=== PATIENT | female | born 1945 | race Caucasian/White ===

== ENCOUNTER 2020-11-19 18:47 | Inpatient (IN) | payer MEDICARE, OTHER ==
[~2020-11-19] VITALS: Ht 152.4 cm; Wt 112.6 kg
[~2020-11-19 18:47] MED LIST: ALPRAZOLAM 0.50.5 MG PO; ALTACE10 M1; ALTACE10 M1 PO; AMLODIPINE BESY10 MG PO; ASPIRIN325 PO; ASPIRIN81 M2 PO; BIOTIN1 MG PO; BIOTIN2500 MCG PO; BRILINTA90 MG PO; BUDEPRION XL300 MG; BUPROPION PO; BUPROPION XL300 MG PO; CENTRUM SILVER1 EAC3; COMPLETE SENIO1 EACH PO; COREG3.125 MG PO; CRESTOR10 MG PO; D3 DOTS2000 UNIT PO; ETODOLAC500 MG PO; FISH OIL 1,001000 MG PO; HYDROCHLOROTHIA50 MG PO; LEVOTHYROXIN0.125 M1 PO; LEVOTHYROXIN0.137 M1 PO; LISINOPRIL40 MG PO; LORTAB 5-500 T1 EAC1 PO; LORTAB 7.5/5001 TA3; NABUMETONE 500500 M1; NITROGLYCERIN0.4 MG SUBLING; NORCO5 PO; OMEGA-31000 MG PO; PEPCID40 MG PO; PLAVIX 75 MG TA75 MG PO; PREDNISONE 20 M20 M1 PO; PRINIVIL40 MG PO; PROTONIX40 M2 PO; SENIOR VITAMIN PO; SYNTHROID137 MC1 PO; TRAMADOL 50 MG50 MG PO; VICODIN; VITAMIN D35000 UNI1 PO
[2020-11-19 18:50] VITALS: BP 127/74
[2020-11-19 19:33] LABS: ABSOLUTE BASOPHILS 0.1 thou/uL (0.0-0.2); ABSOLUTE EOSINOPHILS 0.2 thou/uL (0.0-0.7); ABSOLUTE LYMPHOCYTES 0.8 thou/uL (0.8-5.3); ABSOLUTE MONOCYTES 0.4 thou/uL (0.0-1.2); ABSOLUTE NEUTROPHILS 4.3 thou/uL (1.6-8.1); BASOPHILS 1.2 %; EOSINOPHILS 3.4 %; HEMATOCRIT 29.3 % (37.0-47.0); LYMPHOCYTES 13.7 %; MCH 21.7 pg (26.0-34.0); MCHC 30.7 g/dL (28.0-37.0); MCV 70.6 fL (80.0-100.0); MONOCYTES 6.6 %; MPV 8.2 fl. (7.2-11.1); NUCLEATED RBCS 0 /100WBC; PLATELET COUNT* 229 thou/uL (150-400); POLYS 75.1 %; RBC 4.15 mil/uL (4.20-5.00); RDW-CV 18.3 % (10.5-14.5); WBC 5.7 thou/uL (4.0-11.0)
[2020-11-19 19:42] LABS: CALCIUM 8.6 mg/dL (8.5-10.1); CREATININE 0.8 mg/dL (0.6-1.3); POTASSIUM 3.8 mmol/L (3.5-5.1)
[2020-11-19 19:45] LABS: INR 1.6; PROTIME 16.4 Seconds (9.20-11.50)
[2020-11-19 19:57] LABS: ALBUMIN 3.6 g/dL (3.4-5.0); MAGNESIUM 1.7 mg/dL (1.8-2.4); TOTAL BILIRUBIN 0.8 mg/dL (<0.1-1.0); TOTAL PROTEIN 7.2 g/dL (6.4-8.2)
[2020-11-19 20:08] LABS: HYPOCHROMASIA 2+; MICROCYTES 1+; PLATELET ESTIMATE ADEQUATE
[2020-11-19 20:17] LABS: URINE BLOOD 1+ (Negative); URINE CLARITY CLEAR; URINE COLOR YELLOW; URINE GLUCOSE-RANDOM NEGATIVE (Negative); URINE KETONES NEGATIVE (Negative); URINE NITRITE-REFLEX NEGATIVE (Negative); URINE PROTEIN 2+ (Negative); URINE SPECIFIC GRAVITY >= 1.030 (1.005-1.030)
[2020-11-19 20:24] LABS: % SATURATION 2 % (20-39); IRON 11 ug/dL (50-175)
[2020-11-19 20:24] LABS: ICTOTEST (BILI CONFIRMATORY) Negative (Negative); URINE BILIRUBIN 1+ (Negative); URINE LEUKOCYTES-REFLEX 2+ (Negative)
[2020-11-19 20:25] LABS: CASTS None Seen /LPF (None Seen); CRYSTALS None Seen /LPF (None Seen); SQUAMOUS 4-10 Moderate /LPF (0-3); URINE RBC 3-10 Few /HPF (0-2); URINE WBC-REFLEX >25 Many /HPF (0-5)
[2020-11-19 21:30] VITALS: BP 120/61
[2020-11-20] VITALS (8 sets, daily range): BP systolic 119–144; BP diastolic 58–98
--- NOTE | 2020-11-20 09:39 | EKG ---
[place] [address] ELECTROCARDIOGRAM REPORT Name: SYMONEALLYN Room: [address] ADM IN [facility]#: [id number] Admission: 11/19/20 Attend Phys: Lizzy Baldwin MD Discharge: Date of : 47 Date of Service: 11/19/201852 Report #: [id number] THIS REPORT FOR: //name// [facility] ED Test Date: 2020-11-19 Test Time: 18:53:44 Pat Name: ALLYN ASHBY Department: Room: [facility] Gender: F [place]: ADELITA : 1945 Requested By: Genny Maldonado Order Number: [id number] MD: Manoj Stock Measurements Intervals Allison Rate: 86 P: GA: QRS: -32 QRSD: 103 T: 167 QT: 397 QTc: 475 Interpretive Statements Pacemaker spikes or artifacts Atrial fibrillation Left axis deviation Low voltage, precordial leads Anteroseptal infarct, old Repol abnrm suggests ischemia, lateral leads Baseline wander in lead(s) V3 Compared to ECG 09/29/2013 07:58:25 Left-axis deviation now present Low QRS voltage now present Myocardial infarct finding now present Sinus bradycardia no longer present Electronically Signed On 11-20-2020 9:39:11 CDT by Manoj Stock [email or web address] <ELECTRONICALLY SIGNED> By: Manoj Stock MD, [facility] 11/20/20 0939 52 52 Manoj Stock MD, [facility] /EPI
[2020-11-20] MEDS ORDERED: FUROSEMIDE 40 M40 MG PO (09:51)
[2020-11-20] MEDS ORDERED: KLOR-CON 10 ER10 MEQ PO (09:57)
[2020-11-20] MEDS ORDERED: ELIQUIS5 MG PO (09:58)
[2020-11-20] MEDS ORDERED: ZOLOFT50 M1 PO (10:00)
[2020-11-20] MEDS ORDERED: NAMENDA 5 MG TAB5 M1 PO (10:04)
[2020-11-20] MEDS ORDERED: NAPROXEN500 MG PO (10:04)
[2020-11-20] MEDS ORDERED: IMDUR 30 MG TAB30 M1 PO (10:05)
[2020-11-20] MEDS ORDERED: XALATAN2.5 ML OPHTHALMIC (10:06)
--- NOTE | 2020-11-20 12:48 | 2DMMODE ---
[place] [address] 2 D/M-MODE ECHOCARDIOGRAM Name: KARANRAYALLYN Room: [address] IN [facility]#: [id number] Admission: 11/19/20 Attend Phys: Lizzy Baldwin MD Discharge: Date of : 47 Date of Service: 11/20/20 1248 Report #: [id number] THIS REPORT FOR: cc: Baltazar Torres Bradley L. DO Blick, David R. MD [facility] ~ APPROVED REPORT Study performed: 11/20/2020 10:46:33 EXAM: Comprehensive 2D, Doppler, and color-flow Echocardiogram Patient Location: In-Patient Room #: [facility] Status: routine BSA: 2.12 HR: 83 bpm BP: 128/72 mmHg Rhythm: Atrial Fibrillation Other Information Study Quality: Good Indications Congestive Heart Failure 2D Dimensions IVSd: 12.97 (7-11mm) LVOT Diam: 19.75 (18-24mm) LVDd: 46.53 mm PWd: 11.10 (7-11mm) Ascending Ao: 31.86 (22-36mm) LVDs: 38.69 (25-40mm) Aortic Root: 27.30 mm Volumes Left Atrial Volume (Systole) LA ESV Index: 53.00 mL/m2 Aortic Valve AoV Peak Meng.: 0.96 m/s AO Peak Gr.: 3.65 mmHg LVOT Max P.23 mmHg AO Mean Gr.: 2.21 mmHg LVOT Mean P.64 mmHg LVOT Max V: 0.55 m/s AO V2 VTI: 16.70 cm LVOT Mean V: 0.37 m/s JUANITA (VTI): 1.99 cm2 LVOT V1 VTI: 10.84 [place] [address] 2 D/M-MODE ECHOCARDIOGRAM Name: ALLYN ASHBY Room: [address] IN [facility].#: [id number] Admission: 11/19/20 Attend Phys: Lizzy Baldwin MD Discharge: Date of : 47 Date of Service: 11/20/20 1248 Report #: [id number] Mitral Valve MV Decel. Time: 146.09 ms MV PHT: 42.37 ms MVA (PHT): 5.19 cm2 TDI Medial E' Meng.: 0.09 m/s Lateral E' Meng.: 0.12 m/s Pulmonary Valve PV Peak Meng.: 0.61 m/s PV Peak Gr.: 1.46 mmHg Tricuspid Valve RAP Estimate: 5.00 mmHg TR Peak Gr.: 31.06 mmHg RVSP: 36.00 mmHg PA Pressure: 36.00 mmHg Left Ventricle The left ventricle is normal size. There is normal LV segmental wall motion. Mild concentric left ventricular hypertrophy. Left ventricular systolic function is borderline. LVEF is 50-55%. This study is not technically sufficient to allow evaluation of the LV diastolic function due to atrial fibrillation. Right Ventricle Right ventricle is mildly dilated. The right ventricular systolic function is normal. Atria Left atrium is severely dilated. Right atrium is mildly dilated. Aortic Valve Mild aortic valve sclerosis. No aortic regurgitation is present. There is no aortic valvular stenosis. Mitral Valve The mitral valve is normal in structure. Mild mitral regurgitation. No evidence of mitral valve stenosis. Tricuspid Valve The tricuspid valve is normal in structure. Moderate tricuspid regurgitation. estimated pa pressure 45 mm Hg Pulmonic Valve The pulmonary valve is normal in structure[place] [address] 2 D/M-MODE ECHOCARDIOGRAM Name: KARANRAYALLYN Room: [address]#: [id number] Admission: 11/19/20 Attend Phys: Lizzy Baldwin MD Discharge: Date of : 47 Date of Service: 11/20/20 1248 Report #: [id number] regurgitation. Great Vessels The aortic root is normal in size. IVC is normal in size and collapses >50% with inspiration. Pericardium There is no pericardial effusion. <Conclusion> Mild concentric left ventricular hypertrophy. LVEF is 50-55%. Right ventricle is mildly dilated. Left atrium is severely dilated. Mild aortic valve sclerosis. Mild mitral regurgitation. Moderate tricuspid regurgitation. estimated pa pressure 45 mm Hg <ELECTRONICALLY SIGNED> By: Manoj Stock MD, FACC 11/20/20 1248 1248 1248 Manoj Stock MD, FAC /INF
[2020-11-21 00:06] VITALS: BP 140/90
[2020-11-21 04:25] VITALS: BP 155/84
[2020-11-21 04:42] LABS: ABSOLUTE BASOPHILS 0.1 thou/uL (0.0-0.2); ABSOLUTE EOSINOPHILS 0.3 thou/uL (0.0-0.7); ABSOLUTE MONOCYTES 0.4 thou/uL (0.0-1.2); ABSOLUTE NEUTROPHILS 3.9 thou/uL (1.6-8.1); BASOPHILS 1.2 %; EOSINOPHILS 4.5 %; HEMATOCRIT 28.3 % (37.0-47.0); HEMOGLOBIN 8.6 gm/dL (12.0-15.0); LYMPHOCYTES 17.6 %; MCH 21.6 pg (26.0-34.0); MCHC 30.3 g/dL (28.0-37.0); MCV 71.4 fL (80.0-100.0); MONOCYTES 7.7 %; MPV 8.3 fl. (7.2-11.1); NUCLEATED RBCS 0 /100WBC; PLATELET COUNT* 230 thou/uL (150-400); RBC 3.96 mil/uL (4.20-5.00); RDW-CV 18.5 % (10.5-14.5); WBC 5.6 thou/uL (4.0-11.0)
[2020-11-21 04:46] LABS: CALCIUM 8.2 mg/dL (8.5-10.1); CREATININE 0.9 mg/dL (0.6-1.3); POTASSIUM 3.6 mmol/L (3.5-5.1)
[2020-11-21 07:38] VITALS: BP 155/84
[2020-11-21 11:45] VITALS: BP 123/77
[2020-11-21 17:20] VITALS: BP 123/69
[2020-11-22 00:46] VITALS: BP 91/46
[2020-11-22 04:26] VITALS: BP 142/53
[2020-11-22 06:07] LABS: ABSOLUTE BASOPHILS 0.1 thou/uL (0.0-0.2); ABSOLUTE EOSINOPHILS 0.3 thou/uL (0.0-0.7); ABSOLUTE LYMPHOCYTES 0.7 thou/uL (0.8-5.3); ABSOLUTE MONOCYTES 0.3 thou/uL (0.0-1.2); ABSOLUTE NEUTROPHILS 3.7 thou/uL (1.6-8.1); BASOPHILS 1.1 %; EOSINOPHILS 5.1 %; HEMATOCRIT 28.5 % (37.0-47.0); HEMOGLOBIN 8.6 gm/dL (12.0-15.0); LYMPHOCYTES 14.2 %; MCH 21.4 pg (26.0-34.0); MCHC 30.1 g/dL (28.0-37.0); MONOCYTES 5.4 %; MPV 8.1 fl. (7.2-11.1); NUCLEATED RBCS 0 /100WBC; PLATELET COUNT* 231 thou/uL (150-400); POLYS 74.2 %; RBC 4.02 mil/uL (4.20-5.00); RDW-CV 18.3 % (10.5-14.5)
[2020-11-22 06:19] LABS: ALBUMIN 2.9 g/dL (3.4-5.0); CALCIUM 8.5 mg/dL (8.5-10.1); CREATININE 0.9 mg/dL (0.6-1.3); POTASSIUM 3.2 mmol/L (3.5-5.1); TOTAL BILIRUBIN 0.6 mg/dL (<0.1-1.0); TOTAL PROTEIN 6.4 g/dL (6.4-8.2)
[2020-11-22 08:00] VITALS: BP 95/49
[2020-11-22 13:50] VITALS: BP 113/48
[2020-11-22 16:59] VITALS: BP 97/67
[2020-11-22 20:00] VITALS: BP 137/72
[2020-11-23 00:18] VITALS: BP 117/51
[2020-11-23 04:24] VITALS: BP 137/86
[2020-11-23 07:02] LABS: CALCIUM 8.2 mg/dL (8.5-10.1); CREATININE 0.9 mg/dL (0.6-1.3); POTASSIUM 3.6 mmol/L (3.5-5.1)
[2020-11-23 07:08] LABS: ABSOLUTE BASOPHILS 0.1 thou/uL (0.0-0.2); ABSOLUTE EOSINOPHILS 0.2 thou/uL (0.0-0.7); ABSOLUTE LYMPHOCYTES 0.8 thou/uL (0.8-5.3); ABSOLUTE MONOCYTES 0.3 thou/uL (0.0-1.2); ABSOLUTE NEUTROPHILS 3.4 thou/uL (1.6-8.1); BASOPHILS 1.1 %; EOSINOPHILS 3.9 %; HEMATOCRIT 27.1 % (37.0-47.0); HEMOGLOBIN 8.4 gm/dL (12.0-15.0); LYMPHOCYTES 17.4 %; MCH 21.7 pg (26.0-34.0); MONOCYTES 6.7 %; MPV 8.2 fl. (7.2-11.1); NUCLEATED RBCS 0 /100WBC; PLATELET COUNT* 240 thou/uL (150-400); POLYS 70.9 %; RBC 3.87 mil/uL (4.20-5.00); RDW-CV 17.9 % (10.5-14.5); WBC 4.8 thou/uL (4.0-11.0)
[2020-11-23 08:00] VITALS: BP 136/76
[2020-11-23 13:07] VITALS: BP 144/81
[2020-11-23 16:57] VITALS: BP 123/60
[2020-11-24 00:03] VITALS: BP 92/65
[2020-11-24 05:08] VITALS: BP 133/72
[2020-11-24 08:08] VITALS: BP 138/64
[2020-11-24 08:38] LABS: ABSOLUTE BASOPHILS 0.1 thou/uL (0.0-0.2); ABSOLUTE EOSINOPHILS 0.2 thou/uL (0.0-0.7); ABSOLUTE LYMPHOCYTES 0.8 thou/uL (0.8-5.3); ABSOLUTE MONOCYTES 0.3 thou/uL (0.0-1.2); ABSOLUTE NEUTROPHILS 3.5 thou/uL (1.6-8.1); BASOPHILS 1.2 %; EOSINOPHILS 3.2 %; HEMATOCRIT 30.2 % (37.0-47.0); HEMOGLOBIN 9.1 gm/dL (12.0-15.0); LYMPHOCYTES 17.4 %; MCHC 30.3 g/dL (28.0-37.0); MCV 69.6 fL (80.0-100.0); MONOCYTES 6.1 %; MPV 7.8 fl. (7.2-11.1); NUCLEATED RBCS 0 /100WBC; PLATELET COUNT* 287 thou/uL (150-400); POLYS 72.1 %; RBC 4.34 mil/uL (4.20-5.00); RDW-CV 17.7 % (10.5-14.5); WBC 4.9 thou/uL (4.0-11.0)
[2020-11-24 08:46] LABS: CALCIUM 8.8 mg/dL (8.5-10.1); CREATININE 0.8 mg/dL (0.6-1.3); POTASSIUM 3.2 mmol/L (3.5-5.1)
[2020-11-24 08:58] LABS: HYPOCHROMASIA 1+; MICROCYTES 2+
[2020-11-24 12:17] VITALS: BP 123/69
== END 2020-11-24 14:00 | DRG 291 ==
LOC: M.ERS 18:47 → M.2W 20:08 → M.TBA-ER 20:08 → M.2W 21:35
PROVIDERS: Emergency Medicine; Internal Medicine; ADMIT Family Medicine; ATTEND Family Medicine
DX: I50.43 Acute on chronic combined systolic (congestive) and diastolic (congestive) heart failure (principal); J18.9 Pneumonia, unspecified organism; N39.0 Urinary tract infection, site not specified; D64.9 Anemia, unspecified; K21.9 Gastro-esophageal reflux disease without esophagitis; E83.42 Hypomagnesemia; F32.9 Major depressive disorder, single episode, unspecified; F43.10 Post-traumatic stress disorder, unspecified; I48.91 Unspecified atrial fibrillation; G47.33 Obstructive sleep apnea (adult) (pediatric); K58.9 Irritable bowel syndrome, unspecified; E87.6 Hypokalemia; M19.90 Unspecified osteoarthritis, unspecified site; Z96.642 Presence of left artificial hip joint; Z20.822 Contact with and (suspected) exposure to COVID-19; Z86.16 Personal history of COVID-19; Z91.09 Other allergy status, other than to drugs and biological substances; Z85.828 Personal history of other malignant neoplasm of skin; Z90.49 Acquired absence of other specified parts of digestive tract; Z95.5 Presence of coronary angioplasty implant and graft; Z79.899 Other long term (current) drug therapy; E64.9 Sequelae of unspecified nutritional deficiency; Z87.891 Personal history of nicotine dependence